=== PATIENT | male | born 1990 ===

== ENCOUNTER 2020-08-19 19:42 | Emergency (ER) | payer OTHER ==
[~2020-08-19] VITALS: Ht 152.4 cm; Wt 51.3 kg
[2020-08-19] MEDS ORDERED: PERCOCET 5-3251 EACH PO (21:46)
[2020-08-19] MEDS ORDERED: IBU800 MG PO (21:46)
== END 2020-08-19 22:00 | disposition home or self-care (01) ==
LOC: ED 19:42
DX: S82.832A Other fracture of upper and lower end of left fibula, initial encounter for closed fracture (principal); V80.010A Animal-rider injured by fall from or being thrown from horse in noncollision accident, initial encounter; Y93.89 Activity, other specified; Y92.89 Other specified places as the place of occurrence of the external cause; Y99.8 Other external cause status